=== PATIENT | female | born 1945 | race Caucasian/White ===

== ENCOUNTER 2018-07-12 22:40 | Emergency (ER) | payer MEDICARE, OTHER, SELFPAY ==
[2018-07-12 22:43] VITALS: BP 130/71; PULSE 78; RESP 18; TEMP 36.6; O2SAT 95; BMI 34.7
--- NOTE | 2018-07-12 22:49 | DI.CT.S_ITS ---
PROCEDURE: CT HEAD/BRAIN WO CON INDICATIONS: fell off bar stool,etoh on board TECHNIQUE: Noncontrast 4.5 mm thick angled axial sections acquired from the foramen magnum to the vertex, with coronal and sagittal reformats. For radiation dose reduction, the following was used: automated exposure control, adjustment of mA and/or kV according to patient size. COMPARISON: None. FINDINGS: Image quality: Excellent. CSF spaces: Basal cisterns are patent. No extra-axial fluid collections. The ventricles are symmetric in size and shape. Brain: No intracranial bleeds or masses. There is cerebral volume loss for age, with resultant ventricular and sulcal prominence. There are periventricular and deep white matter chronic small vessel ischemic changes. There is intracranial internal carotid artery atherosclerosis. Skull and face: Calvarium and visualized facial bones appear intact, without suspicious lesions. Superficial soft tissue contusion overlying the right posterolateral calvarium. Sinuses: Visualized sinuses and mastoids are clear. IMPRESSION: CT head without acute intracranial abnormalities. Superficial scalp contusion overlying the right posterolateral calvarium without underlying fracture. Dictated by: Delbert Floyd M.D. on 07/13/2018 at 10:28 Approved by: Delbert Floyd M.D. on 07/13/2018 at 10:30
--- NOTE | 2018-07-12 22:49 | DI.CT.S_ITS ---
PROCEDURE: CT CERVICAL SPINE WO CON INDICATIONS: fell off bar stool,etoh on board TECHNIQUE: Noncontrast 3 mm thick sections acquired from the skull base to the T4 level. Sagittal and coronal reformats were then constructed. For radiation dose reduction, the following was used: automated exposure control, adjustment of mA and/or kV according to patient size. COMPARISON: None. FINDINGS: Image quality: Excellent. Bones: No acute cervical fractures or dislocations. Visualized superior ribs are intact without acute fracture. Straightening of normal cervical or doses likely related to patient positioning and/or muscle spasms. There are mild-moderate spondylitic changes seen throughout the cervical spine with associated facet arthropathy. Findings are most pronounced at C3-4 through C6-7. Soft tissues: Prevertebral soft tissues are normal in thickness. No paravertebral hematomas. No apical pneumothoraces. Prominence of the thyroid gland with suggestion of possible thyroid nodules. IMPRESSION: 1. Cervical spine without acute fracture or dislocation. 2. Mild to moderate multilevel cervical spondylosis. 3. Prominent thyroid gland with suggestion of possible thyroid nodules. Consider outpatient thyroid ultrasound for further evaluation. Dictated by: Delbert Floyd M.D. on 07/13/2018 at 10:30 Approved by: Delbert Floyd M.D. on 07/13/2018 at 11:00
[2018-07-12 23:39] LABS: Add Manual Diff / Slide Review NO; Basophils Absolute Auto 0 /uL (0-100); Basophils Percent Auto 0.5 % (0-2); Eosinophils Absolute Auto 100 /uL (0-450); Hematocrit 43.6 % (36-46); Hemoglobin 14.9 g/dL (12.0-16.0); Lymphocytes Absolute Auto 2700 /uL (1100-4500); Lymphocytes Percent Auto 32.2 % (25-40); Mean Corpuscular HGB Conc 34.2 % (30-36); Mean Corpuscular Hemoglobin 29.6 PG (26-34); Mean Corpuscular Volume 86.5 fL (80-100); Monocytes Absolute Auto 700 /uL (0-900); Monocytes Percent Auto 8.4 % (3-14); Neutrophils Absolute Auto 4900 /uL (1500-7000); Neutrophils Percent Auto 57.9 % (50-75); Platelet Count 195 X10^3/uL (150-400); Red Blood Cell Count 5.04 X10^6/uL (4.0-5.2); Red Cell Distribution Width 14.5 % (11.6-14.8); White Blood Cell Count 8.4 X10^3/uL (4.5-11.0)
[2018-07-12 23:43] LABS: Prothrombin Time 11.2 SECONDS (10.1-12.7)
[2018-07-12 23:48] LABS: Alanine Aminotransferase 26 IU/L (9-52); Albumin 4.3 g/dL (3.5-5.0); Albumin Globulin Ratio 1.4 (1.0-2.8); Alkaline Phosphatase 150 U/L (38-126); Aspartate Aminotransferase 24 IU/L (14-36); Bilirubin Total 0.4 mg/dL (0.2-1.3); Blood Urea Nitrogen 13 mg/dL (7-17); Calcium 8.9 mg/dL (8.4-10.2); Carbon Dioxide 24 mmol/L (22-32); Chloride 102 mmol/L (98-107); Estimated Glomerular Filt Rate > 60.0 mL/min (>60); Glucose 293 mg/dL (80-110); HEMOLYSIS < 15 (0-50); Potassium 3.9 mmol/L (3.4-5.1); Sodium 140 mmol/L (137-145); Total Protein 7.3 g/dL (6.3-8.2)
[2018-07-12 23:52] VITALS: BP 135/58; PULSE 87; RESP 19; O2SAT 95
[2018-07-13 00:31] LABS: Ethanol (ETOH) 225 mg/dL
--- NOTE | 2018-07-13 00:43 | PC.NURSE ---
She pulled out both her iv catheters patent and intact,scant bleeding noted.no active bleeding now.
[2018-07-13 01:17] VITALS: BP 119/50; PULSE 75; RESP 15; O2SAT 94
[2018-07-13 02:13] VITALS: BP 121/61; PULSE 76; RESP 18; O2SAT 96
[2018-07-13 06:39] VITALS: BP 132/64; PULSE 76; RESP 18; TEMP 36.6; O2SAT 98
--- NOTE | 2018-07-13 16:11 | ED.FALL ---
HPI - Fall General Chief Complaint: Fall Stated Complaint: Ground level fall Time Seen by Provider: 07/12/18 22:39 Source: patient and EMS Mode of arrival: EMS Limitations: other (Patient is intoxicated.) History of Present Illness HPI Narrative: Patient is brought by EMS after falling off a bar stool onto a hard surface floor after drinking at the bar. EMS states that bystanders said the patient's head hit the floor, and it sounded like a coconut hitting the ground . Patient was rendered unconscious initially, though by the time the medics arrived, she was alert and appropriate. Patient does not have recollection of the incident. She states she has a headache and has noticed swelling in the area where her head hurts. She denies pain anywhere else. States her headache as a 3/10. No other complaints at this time. Related Data Allergies Allergy/AdvReac Type Severity Reaction Status Date / Time Penicillins Allergy Verified 07/12/18 22:44 Review of Systems Constitutional Denies chills, Denies fever(s), Reports headache(s), Denies lethargy and Denies weakness Eyes Denies change in vision, Denies eye discharge, Denies irritation and Denies loss of vision ENT Ears, Nose, Mouth, and Throat: Denies change in voice, Reports headache(s), Denies neck pain and Denies sore throat Cardiovascular Denies chest pain, Denies irregular heart rhythm, Denies lightheadedness, Denies palpitations, Denies dyspnea, Denies dyspnea on exertion and Denies orthopnea Respiratory Denies cough, Denies dyspnea, Denies dyspnea on exertion and Denies wheezing Gastrointestinal Gastrointestinal: Denies abdominal pain, Denies change in bowel habits, Denies diarrhea, Denies nausea and Denies vomiting Genitourinary Denies hematuria, Denies flank pain, Denies urinary incontinence and Denies urinary urgency Musculoskeletal Denies neck pain Integumentary/Breasts Denies pruritus, Denies erythema, Denies rash and Denies wounds Neurologic Denies confusion, Reports headache(s), Denies loss of vision and Denies weakness Psychiatric Denies anxiety, Denies confusion, Denies depression, Denies homicidal ideation and Denies suicidal ideation Endocrine Denies palpitations Hematologic/Lymphatic Denies easy bruising Allergic/Immunologic Denies wheezing Exam Initial Vital Signs Initial Vital Signs: Vital Signs Temperature 97.9 F 07/12/18 22:43 Pulse Rate 78 07/12/18 22:43 Respiratory Rate 18 07/12/18 22:43 Blood Pressure 130/71 07/12/18 22:43 Pulse Oximetry 95 07/12/18 22:43 Const General: cooperative and well developed Nutritional Appearance: well nourished Orientation: alert, awake, oriented x3 and not confused Other: Patient smells mildly of alcohol. HENMT Head: normocephalic and contusion (Right lateral occipital area. ) Ears: external ears normal Nose: external nose normal and No nasal discharge Face and sinus: sinuses nontender, face symmetric, no sinus tenderness and No dry mucous membranes Mouth: oral mucosae normal and moist mucous membranes Teeth and gingiva: dentition normal Eyes General: appearance normal, both eyes and all related structures Eyelids: eyelids normal Conjunctivae: conjunctivae normal Sclera: sclerae normal Pupils: PERRL EOM: EOM intact bilaterally Neck Neck: normal visual inspection, trachea midline, No lymphadenopathy, No midline deformity and No JVD Lymphatic: No lymphedema Other: No vertebral tenderness or step-off at any level of the spine. Chest Chest: normal inspection of the chest Resp Effort & Inspection: normal respiratory effort, able to speak in complete sentences, no respiratory distress and no use of accessory muscles Auscultation: clear to auscultation bilaterally, no rales, no rhonchi and no wheezes Cardio Rate: regular rate Rhythm: regular rhythm Heart Sounds: no click, no gallops, no murmurs and no rubs Pulses: normal peripheral pulses GI Inspection: non-distended Palpation: soft, no hepatosplenomegaly, No guarding, No pulsatile mass and No tender Back/Spine/Pelvis Back: No CVA tenderness Cervical Spine: cervical ROM normal and No pain with cervical ROM Thoracic/Lumbar Spine: thoracic and lumbar spine normal to inspection Skin General: no rashes or lesions noted, No jaundice and No petechiae Neuro General: alert, oriented x3, gait normal and no focal motor deficits Speech: speech normal Extrem General: full ROM, no clubbing, cyanosis or edema, no pedal edema and no calf tenderness Psych Appearance: well kempt Mental Status: mental status grossly normal Attitude: cooperative Thought Content: normal and suicidality Judgment: judgment good [facility] Medical History Alcohol intoxication (Acute) Surgical History No pertinent past surgical history (Acute) Social History Smoking Status: Smoker, status unknown alcohol intake: current Course Course Narrative: Patient was worked up with CT scans of the head and neck, as well as labs and alcohol level. Initially, I interpreted the head CT as showing an intracranial hemorrhage; however, the radiologist read this study is negative. I did call and speak with the nightshift radiologist, and she pointed out why she did not feel the findings were consistent with hemorrhage, and rather, represented normal structural findings. The patient was observed in the emergency department until more sober, and was able to take a taxi home. She remained stable throughout her stay in the emergency department steadily improved. - Fall Medical Records Attestation: I reviewed the patient's medical records. Lab Data Attestation: I reviewed the patient's lab results. Result diagrams: 07/12/18 23:20 07/12/18 23:20 Lab Results 07/12/18 07/12/18 07/12/18 Range/Units 23:20 23:20 23:20 WBC 8.4 (4.5-11.0) X10^3/uL RBC 5.04 (4.0-5.2) X10^6/uL Hgb 14.9 (12.0-16.0) g/dL Hct 43.6 (36-46) % MCV 86.5 (80-100) fL MCH 29.6 (26-34) PG MCHC 34.2 (30-36) % RDW 14.5 (11.6-14.8) % Plt Count 195 (150-400) X10^3/uL Neut % (Auto) 57.9 (50-75) % Lymph % (Auto) 32.2 (25-40) % [place] % (Auto) 8.4 (3-14) % Eos % (Auto) 1.0 L (2-4) % Baso % (Auto) 0.5 (0-2) % Neut # (Auto) 4900 (0022-7587) /uL Lymph # (Auto) 2700 (0492-9947) /uL [place] # (Auto) 700 (0-900) /uL Eos # (Auto) 100 (0-450) /uL Baso # (Auto) 0 (0-100) /uL PT 11.2 (10.1-12.7) SECONDS INR 1.0 (0.9-1.3) Sodium 140 (137-145) mmol/L Potassium 3.9 (3.4-5.1) mmol/L Chloride 102 (98-107) mmol/L Carbon Dioxide 24 (22-32) mmol/L BUN 13 (7-17) mg/dL Creatinine 0.50 L (0.52-1.04) mg/dL Estimated GFR > 60.0 (>60) mL/min BUN/Creatinine Ratio 26.0 H (6-22) Glucose 293 H (80-110) mg/dL Calcium 8.9 (8.4-10.2) mg/dL Total Bilirubin 0.4 (0.2-1.3) mg/dL AST 24 (14-36) IU/L ALT 26 (9-52) IU/L Alkaline Phosphatase 150 H (38-126) U/L Total Protein 7.3 (6.3-8.2) g/dL Albumin 4.3 (3.5-5.0) g/dL Globulin 3.0 (1.7-4.1) g/dL Albumin/Globulin Ratio 1.4 (1.0-2.8) Ethyl Alcohol 225 mg/dL Imaging Data CT scan - head: Attestation: I personally reviewed and interpreted this imaging study as follows: Radiologist's impression: PROCEDURE: CT HEAD/BRAIN WO CON INDICATIONS: fell off bar stool,etoh on board TECHNIQUE: Noncontrast 4.5 mm thick angled axial sections acquired from the foramen magnum to the vertex, with coronal and sagittal reformats. For radiation dose reduction, the following was used: automated exposure control, adjustment of mA and/or kV according to patient size. COMPARISON: None. FINDINGS: Image quality: Excellent. CSF spaces: Basal cisterns are patent. No extra-axial fluid collections. The ventricles are symmetric in size and shape. Brain: No intracranial bleeds or masses. There is cerebral volume loss for age, with resultant ventricular and sulcal prominence. There are periventricular and deep white matter chronic small vessel ischemic changes. There is intracranial internal carotid artery atherosclerosis. Skull and face: Calvarium and visualized facial bones appear intact, without suspicious lesions. Superficial soft tissue contusion overlying the right posterolateral calvarium. Sinuses: Visualized sinuses and mastoids are clear. IMPRESSION: CT head without acute intracranial abnormalities. Superficial scalp contusion overlying the right posterolateral calvarium without underlying fracture. Dictated by: Delbert Floyd M.D. on 07/13/2018 at 10:28 Approved by: Delbert Floyd M.D. on 07/13/2018 at 10:30 CT C-spine: Radiologist's impression: [address] [address] [address] Scan Report Signed Patient: Delaney Martinez [facility]#: [id number] : 6Acct:[id number] Age/Sex: 72 / FDate of Service: 07/12/18 Loc: ED Accession Number: [id number] Procedure: CT cervical spine wo con Ordering Provider: Mercedes Mariscal MD PROCEDURE: CT CERVICAL SPINE WO CON INDICATIONS: fell off bar stool,etoh on board TECHNIQUE: Noncontrast 3 mm thick sections acquired from the skull base to the T4 level. Sagittal and coronal reformats were then constructed. For radiation dose reduction, the following was used: automated exposure control, adjustment of mA and/or kV according to patient size. COMPARISON: None. FINDINGS: Image quality: Excellent. Bones: No acute cervical fractures or dislocations. Visualized superior ribs are intact without acute fracture. Straightening of normal cervical or doses likely related to patient positioning and/or muscle spasms. There are mild-moderate spondylitic changes seen throughout the cervical spine with associated facet arthropathy. Findings are most pronounced at C3-4 through C6-7. Soft tissues: Prevertebral soft tissues are normal in thickness. No paravertebral hematomas. No apical pneumothoraces. Prominence of the thyroid gland with suggestion of possible thyroid nodules. IMPRESSION: 1. Cervical spine without acute fracture or dislocation. 2. Mild to moderate multilevel cervical spondylosis. 3. Prominent thyroid gland with suggestion of possible thyroid nodules. Consider outpatient thyroid ultrasound for further evaluation. Dictated by: Delbert Floyd M.D. on 07/13/2018 at 10:30 Approved by: Delbert Floyd M.D. on 07/13/2018 at 11:00 Discharge Plan Departure Patient Disposition: Home Clinical Impression: Alcohol intoxication, Closed head injury Discharge Date/Time: 07/13/18 07:04 Interventions: ED Discharge Assessment Last Done: 07/13/18 06:39 Instructions: DI for Alcohol Abuse, DI for Closed Head Injury Activity Restrictions/Additional Instructions: Your brain CT looks good--no bleeding in the brain. You have hit your head quite hard when you fell off the stool, and you have most likely sustained a concussion. This may leave the feeling dizzy, nauseated, and with headaches for the next week or so. Please avoid alcohol during this time. Referrals: [facility] [Provider Group]
--- NOTE | 2018-07-13 16:18 | ED_ITS ---
HPI - Fall General Chief Complaint: Fall Stated Complaint: Ground level fall Time Seen by Provider: 07/12/18 22:39 Source: patient and EMS Mode of arrival: EMS Limitations: other (Patient is intoxicated.) History of Present Illness HPI Narrative: Patient is brought by EMS after falling off a bar stool onto a hard surface floor after drinking at the bar. EMS states that bystanders said the patient's head hit the floor, and it sounded like a coconut hitting the ground . Patient was rendered unconscious initially, though by the time the medics arrived, she was alert and appropriate. Patient does not have recollection of the incident. She states she has a headache and has noticed swelling in the area where her head hurts. She denies pain anywhere else. States her headache as a 3/10. No other complaints at this time. Related Data Allergies Allergy/AdvReac Type Severity Reaction Status Date / Time Penicillins Allergy Verified 07/12/18 22:44 Review of Systems Constitutional Denies chills, Denies fever(s), Reports headache(s), Denies lethargy and Denies weakness Eyes Denies change in vision, Denies eye discharge, Denies irritation and Denies loss of vision ENT Ears, Nose, Mouth, and Throat: Denies change in voice, Reports headache(s), Denies neck pain and Denies sore throat Cardiovascular Denies chest pain, Denies irregular heart rhythm, Denies lightheadedness, Denies palpitations, Denies dyspnea, Denies dyspnea on exertion and Denies orthopnea Respiratory Denies cough, Denies dyspnea, Denies dyspnea on exertion and Denies wheezing Gastrointestinal Gastrointestinal: Denies abdominal pain, Denies change in bowel habits, Denies diarrhea, Denies nausea and Denies vomiting Genitourinary Denies hematuria, Denies flank pain, Denies urinary incontinence and Denies urinary urgency Musculoskeletal Denies neck pain Integumentary/Breasts Denies pruritus, Denies erythema, Denies rash and Denies wounds Neurologic Denies confusion, Reports headache(s), Denies loss of vision and Denies weakness Psychiatric Denies anxiety, Denies confusion, Denies depression, Denies homicidal ideation and Denies suicidal ideation Endocrine Denies palpitations Hematologic/Lymphatic Denies easy bruising Allergic/Immunologic Denies wheezing Exam Initial Vital Signs Initial Vital Signs: Vital Signs Temperature 97.9 F 07/12/18 22:43 Pulse Rate 78 07/12/18 22:43 Respiratory Rate 18 07/12/18 22:43 Blood Pressure 130/71 07/12/18 22:43 Pulse Oximetry 95 07/12/18 22:43 Const General: cooperative and well developed Nutritional Appearance: well nourished Orientation: alert, awake, oriented x3 and not confused Other: Patient smells mildly of alcohol. HENMT Head: normocephalic and contusion (Right lateral occipital area. ) Ears: external ears normal Nose: external nose normal and No nasal discharge Face and sinus: sinuses nontender, face symmetric, no sinus tenderness and No dry mucous membranes Mouth: oral mucosae normal and moist mucous membranes Teeth and gingiva: dentition normal Eyes General: appearance normal, both eyes and all related structures Eyelids: eyelids normal Conjunctivae: conjunctivae normal Sclera: sclerae normal Pupils: PERRL EOM: EOM intact bilaterally Neck Neck: normal visual inspection, trachea midline, No lymphadenopathy, No midline deformity and No JVD Lymphatic: No lymphedema Other: No vertebral tenderness or step-off at any level of the spine. Chest Chest: normal inspection of the chest Resp Effort & Inspection: normal respiratory effort, able to speak in complete sentences, no respiratory distress and no use of accessory muscles Auscultation: clear to auscultation bilaterally, no rales, no rhonchi and no wheezes Cardio Rate: regular rate Rhythm: regular rhythm Heart Sounds: no click, no gallops, no murmurs and no rubs Pulses: normal peripheral pulses GI Inspection: non-distended Palpation: soft, no hepatosplenomegaly, No guarding, No pulsatile mass and No tender Back/Spine/Pelvis Back: No CVA tenderness Cervical Spine: cervical ROM normal and No pain with cervical ROM Thoracic/Lumbar Spine: thoracic and lumbar spine normal to inspection Skin General: no rashes or lesions noted, No jaundice and No petechiae Neuro General: alert, oriented x3, gait normal and no focal motor deficits Speech: speech normal Extrem General: full ROM, no clubbing, cyanosis or edema, no pedal edema and no calf tenderness Psych Appearance: well kempt Mental Status: mental status grossly normal Attitude: cooperative Thought Content: normal and suicidality Judgment: judgment good [facility] Medical History Alcohol intoxication (Acute) Surgical History No pertinent past surgical history (Acute) Social History Smoking Status: Smoker, status unknown alcohol intake: current Course Course Narrative: Patient was worked up with CT scans of the head and neck, as well as labs and alcohol level. Initially, I interpreted the head CT as showing an intracranial hemorrhage; however, the radiologist read this study is negative. I did call and speak with the nightshift radiologist, and she pointed out why she did not feel the findings were consistent with hemorrhage, and rather, represented normal structural findings. The patient was observed in the emergency department until more sober, and was able to take a taxi home. She remained stable throughout her stay in the emergency department steadily improved. - Fall Medical Records Attestation: I reviewed the patient's medical records. Lab Data Attestation: I reviewed the patient's lab results. Result diagrams: 07/12/18 23:20 07/12/18 23:20 Lab Results 07/12/18 07/12/18 07/12/18 Range/Units 23:20 23:20 23:20 WBC 8.4 (4.5-11.0) X10^3/uL RBC 5.04 (4.0-5.2) X10^6/uL Hgb 14.9 (12.0-16.0) g/dL Hct 43.6 (36-46) % MCV 86.5 (80-100) fL MCH 29.6 (26-34) PG MCHC 34.2 (30-36) % RDW 14.5 (11.6-14.8) % Plt Count 195 (150-400) X10^3/uL Neut % (Auto) 57.9 (50-75) % Lymph % (Auto) 32.2 (25-40) % [place] % (Auto) 8.4 (3-14) % Eos % (Auto) 1.0 L (2-4) % Baso % (Auto) 0.5 (0-2) % Neut # (Auto) 4900 (1971-0045) /uL Lymph # (Auto) 2700 (2958-1334) /uL [place] # (Auto) 700 (0-900) /uL Eos # (Auto) 100 (0-450) /uL Baso # (Auto) 0 (0-100) /uL PT 11.2 (10.1-12.7) SECONDS INR 1.0 (0.9-1.3) Sodium 140 (137-145) mmol/L Potassium 3.9 (3.4-5.1) mmol/L Chloride 102 (98-107) mmol/L Carbon Dioxide 24 (22-32) mmol/L BUN 13 (7-17) mg/dL Creatinine 0.50 L (0.52-1.04) mg/dL Estimated GFR > 60.0 (>60) mL/min BUN/Creatinine Ratio 26.0 H (6-22) Glucose 293 H (80-110) mg/dL Calcium 8.9 (8.4-10.2) mg/dL Total Bilirubin 0.4 (0.2-1.3) mg/dL AST 24 (14-36) IU/L ALT 26 (9-52) IU/L Alkaline Phosphatase 150 H (38-126) U/L Total Protein 7.3 (6.3-8.2) g/dL Albumin 4.3 (3.5-5.0) g/dL Globulin 3.0 (1.7-4.1) g/dL Albumin/Globulin Ratio 1.4 (1.0-2.8) Ethyl Alcohol 225 mg/dL Imaging Data CT scan - head: Attestation: I personally reviewed and interpreted this imaging study as follows: Radiologist's impression: PROCEDURE: CT HEAD/BRAIN WO CON INDICATIONS: fell off bar stool,etoh on board TECHNIQUE: Noncontrast 4.5 mm thick angled axial sections acquired from the foramen magnum to the vertex, with coronal and sagittal reformats. For radiation dose reduction, the following was used: automated exposure control, adjustment of mA and/or kV according to patient size. COMPARISON: None. FINDINGS: Image quality: Excellent. CSF spaces: Basal cisterns are patent. No extra-axial fluid collections. The ventricles are symmetric in size and shape. Brain: No intracranial bleeds or masses. There is cerebral volume loss for age , with resultant ventricular and sulcal prominence. There are periventricular and deep white matter chronic small vessel ischemic changes. There is intracranial internal carotid artery atherosclerosis. Skull and face: Calvarium and visualized facial bones appear intact, without suspicious lesions. Superficial soft tissue contusion overlying the right posterolateral calvarium. Sinuses: Visualized sinuses and mastoids are clear. IMPRESSION: CT head without acute intracranial abnormalities. Superficial scalp contusion overlying the right posterolateral calvarium without underlying fracture. Dictated by: Delbert Floyd M.D. on 07/13/2018 at 10:28 Approved by: Delbert Floyd M.D. on 07/13/2018 at 10:30 CT C-spine: Radiologist's impression: [address] [address] [address] Scan Report Signed Patient: Delaney Martinez [facility]#: [id number] : 6Acct:[id number] Age/Sex: 72 / FDate of Service: 07/12/18 Loc: ED Accession Number: [id number] Procedure: CT cervical spine wo con Ordering Provider: Mercedes Mariscal MD PROCEDURE: CT CERVICAL SPINE WO CON INDICATIONS: fell off bar stool,etoh on board TECHNIQUE: Noncontrast 3 mm thick sections acquired from the skull base to the T4 level. Sagittal and coronal reformats were then constructed. For radiation dose reduction, the following was used: automated exposure control, adjustment of mA and/or kV according to patient size. COMPARISON: None. FINDINGS: Image quality: Excellent. Bones: No acute cervical fractures or dislocations. Visualized superior ribs are intact without acute fracture. Straightening of normal cervical or doses likely related to patient positioning and/or muscle spasms. There are mild-moderate spondylitic changes seen throughout the cervical spine with associated facet arthropathy. Findings are most pronounced at C3-4 through C6-7. Soft tissues: Prevertebral soft tissues are normal in thickness. No paravertebral hematomas. No apical pneumothoraces. Prominence of the thyroid gland with suggestion of possible thyroid nodules. IMPRESSION: 1. Cervical spine without acute fracture or dislocation. 2. Mild to moderate multilevel cervical spondylosis. 3. Prominent thyroid gland with suggestion of possible thyroid nodules. Consider outpatient thyroid ultrasound for further evaluation. Dictated by: Delbert Floyd M.D. on 07/13/2018 at 10:30 Approved by: Delbert Floyd M.D. on 07/13/2018 at 11:00 Discharge Plan Departure Patient Disposition: Home Clinical Impression: Alcohol intoxication, Closed head injury Discharge Date/Time: 07/13/18 07:04 Interventions: ED Discharge Assessment Last Done: 07/13/18 06:39 Instructions: DI for Alcohol Abuse, DI for Closed Head Injury Activity Restrictions/Additional Instructions: Your brain CT looks good--no bleeding in the brain. You have hit your head quite hard when you fell off the stool, and you have most likely sustained a concussion. This may leave the feeling dizzy, nauseated, and with headaches for the next week or so. Please avoid alcohol during this time. Referrals: [facility] [Provider Group]
== END 2018-07-13 07:04 | disposition home or self-care (01) ==
PROVIDERS: Emergency Provider Emergency Medicine
DX: F10.929 Alcohol use, unspecified with intoxication, unspecified (principal); S09.90XA Unspecified injury of head, initial encounter; W08.XXXA Fall from other furniture, initial encounter
CPT/HCPCS: 36591; 70450; 72125; 80053; 80320; 85025; 85610; 99283; 99284; 99291

== ENCOUNTER 2018-10-11 20:23 | Emergency (ER) | payer MEDICARE, OTHER, SELFPAY ==
--- NOTE | 2018-10-11 | DI.RAD.S_ITS ---
PROCEDURE: XR SHOULDER RT MIN 2V INDICATIONS: FRACTURE TECHNIQUE: 2 views of the shoulder were acquired. COMPARISON: None. FINDINGS: Bones: Displaced and impacted fracture of the proximal right humerus. Soft tissues: No suspicious soft tissue calcifications. IMPRESSION: Right humerus fracture. Dictated by: Lulu Colin MD, PhD on 10/12/2018 at 9:36 Approved by: Lulu Colin MD, PhD on 10/12/2018 at 9:36
[2018-10-11 20:29] VITALS: BP 156/58; PULSE 83; RESP 15; TEMP 36.8; O2SAT 97; BMI 35.6
[2018-10-11] MEDS: TET,DIPH,PERTUSS(ACELL),VAC/PF 0.5 ML SYRINGE IM (20:38)
--- NOTE | 2018-10-11 20:38 | DI.CT.S_ITS ---
PROCEDURE: CT THORACIC SPINE WO CON INDICATIONS: glf, midline pain. + etoh TECHNIQUE: Noncontrast 3 mm thick sections acquired through the region of interest in the thoracic spine. Sagittal and coronal reformats were then constructed. For radiation dose reduction, the following was used: automated exposure control. COMPARISON: None. FINDINGS: Image quality: Excellent. Bones: There is normal overall bony alignment. No acute vertebral body compression fractures. No suspicious sclerotic or lytic bony lesions. Central spinal canal is of normal overall caliber. Bridging osteophytes. No trauma found. Soft tissues: No paravertebral masses or hematomas. Visualized posteromedial lungs appear clear. IMPRESSION: Bridging osteophytes along the thoracic spine, no compression fracture or traumatic subluxation is seen. Dictated by: Rashard Oleary M.D. on 10/11/2018 at 21:27 Approved by: Rashard Oleary M.D. on 10/11/2018 at 21:28
--- NOTE | 2018-10-11 20:38 | DI.CT.S_ITS ---
PROCEDURE: CT CERVICAL SPINE WO CON INDICATIONS: glf + etoh TECHNIQUE: Noncontrast 3 mm thick sections acquired from the skull base to the T4 level. Sagittal and coronal reformats were then constructed. For radiation dose reduction, the following was used: automated exposure control, adjustment of mA and/or kV according to patient size. COMPARISON: None. FINDINGS: Image quality: Excellent. Bones: No fractures or dislocations. Visualized superior ribs are intact. Soft tissues: Prevertebral soft tissues are normal in thickness. No paravertebral hematomas. No apical pneumothoraces. IMPRESSION: No trauma found. Dictated by: Rashard Oleary M.D. on 10/11/2018 at 21:38 Approved by: Rashard Oleary M.D. on 10/11/2018 at 21:39
--- NOTE | 2018-10-11 20:38 | DI.CT.S_ITS ---
PROCEDURE: CT LUMBAR SPINE WO CON INDICATIONS: glf, midlien pain, +etoh TECHNIQUE: Noncontrast 3 mm thick sections acquired from the T12 level to the sacrum. Sagittal and coronal reformats were constructed. For radiation dose reduction, the following was used: automated exposure control. COMPARISON: [facility], , L-SPINE 2-3 VIEWS, 02/17/2016, 15:31. FINDINGS: Image quality: Excellent. Bones: There is normal bony alignment. No acute vertebral body compression fractures. No suspicious lytic or blastic bony lesions. Central spinal caliber is of normal overall caliber. No pars defects. With reference to the prior lumbosacral spine plain films from 02/17/16 the superior mild endplate impaction fracture at L3 is again seen. A moderate wedge compression fracture was previously seen at T12, and no traumatic subluxation is found. Soft tissues: No retroperitoneal masses or hematomas. Visualized aorta is normal in caliber. 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 No acute compression fracture or traumatic subluxation is found. Dictated by: Rashard Oleary M.D. on 10/11/2018 at 21:39 Approved by: Rashard Oleary M.D. on 10/11/2018 at 21:41
--- NOTE | 2018-10-11 20:38 | DI.RAD.S_ITS ---
PROCEDURE: XR FOREARM RT 2V INDICATIONS: glf TECHNIQUE: 2 views of the forearm were acquired. COMPARISON: None. FINDINGS: Bones: No fractures or dislocations. No suspicious bony lesions. Soft tissues: No suspicious soft tissue calcifications or masses. IMPRESSION: The forearm long bones appear free of trauma, the elbow and wrist are not adequately visualized to accurately assess for presence or absence of trauma to those areas. Dedicated wrist and elbow films may be warranted. Dictated by: Rashard Oleary M.D. on 10/11/2018 at 21:36 Approved by: Rashard Oleary M.D. on 10/11/2018 at 21:37
--- NOTE | 2018-10-11 20:38 | DI.RAD.S_ITS ---
PROCEDURE: XR HUMERUS RT 2V INDICATIONS: glf, right arm pain TECHNIQUE: 2 views of the humerus were acquired. COMPARISON: None. FINDINGS: Bones: No dislocations. No suspicious bony lesions. The there is a proximal humeral head/neck junction fracture partially visualized. The humerus below that appears free of trauma. Soft tissues: No suspicious soft tissue calcifications. IMPRESSION: Humeral head/neck junction fracture on the right partially visualized. Dedicated shoulder plain films appear warranted. Dictated by: Rashard Oleary M.D. on 10/11/2018 at 21:37 Approved by: Rashard Oleary M.D. on 10/11/2018 at 21:38
--- NOTE | 2018-10-11 20:42 | DI.CT.S_ITS ---
PROCEDURE: CT HEAD/BRAIN WO CON INDICATIONS: glf, + etoh TECHNIQUE: Noncontrast 4.5 mm thick angled axial sections acquired from the foramen magnum to the vertex, with coronal and sagittal reformats. For radiation dose reduction, the following was used: automated exposure control, adjustment of mA and/or kV according to patient size. COMPARISON: None. FINDINGS: Image quality: Excellent. CSF spaces: Basal cisterns are patent. No extra-axial fluid collections. The ventricles are symmetric in size and shape. Brain: No intracranial bleeds or masses. There is cerebral volume loss for age, with resultant ventricular and sulcal prominence. There are periventricular and deep white matter chronic small vessel ischemic changes. There is intracranial internal carotid artery atherosclerosis. Skull and face: Calvarium and visualized facial bones appear intact, without suspicious lesions. Sinuses: Visualized sinuses and mastoids are clear. IMPRESSION: No trauma found. Dictated by: Rashard Oleary M.D. on 10/11/2018 at 21:38 Approved by: Rashard Oleary M.D. on 10/11/2018 at 21:38
--- NOTE | 2018-10-11 21:09 | ED_ITS ---
HPI - Fall <NGUYEN Duvall - Last Filed: 10/11/18 22:48> General Chief Complaint: Fall Stated Complaint: GLF, back pain Time Seen by Provider: 10/11/18 20:33 Source: patient and EMS Mode of arrival: EMS Limitations: no limitations History of Present Illness HPI Narrative: The patient is a 72-year-old female who states she tripped and fell while walking down the street. She states she hit her head, but it does hurt. She does complain of right shoulder pain as well as back midline pain. upon inquiry about neck pain, the patient states she is not sure. She does admit that she has had at least 6 beers prior to her fall. She does complain of an left arm. She does not know when her last tetanus was. She states she is not exactly sure what hurts at this point time. She fell just prior to arrival and arrived by EMS. She was not wearing a C-collar or on a backboard. Related Data Allergies Allergy/AdvReac Type Severity Reaction Status Date / Time Penicillins Allergy Verified 10/11/18 20:29 [facility] Systems [facility] Last Filed: 10/11/18 22:48> Review of Systems GENERAL: Denies chills, fatigue, malaise, fever, sweats. HEENT: Denies sinus pain, ear pain, sore throat, difficulty swallowing, d izziness. RESPIRATORY: Denies dyspnea, cough, wheezing, hemoptysis, sputum. CARDIOVASCULAR: Denies chest pain, palpitations, orthopnea, edema, GASTROINTESTINAL: Denies nausea, vomiting, abdominal pain, diarrhea, constipation, melena. : Denies dysuria, frequency, incontinence, hematuria, urinary retention. MUSCULOSKELETAL: See HPI SKIN: See HPI NEUROLOGIC: Denies weakness, headache, numbness, change in speech, confusion, seizures, incoordination. PSYCHIATRIC: No concerning psychosocial issues. 12 point review of systems is negative except for those stated above Exam <NGUYEN Duvall - Last Filed: 10/11/18 22:48> Narrative Exam Narrative: GENERAL: This is a well-nourished, well-developed patient, in mild distress. HEAD: Atraumatic. Normocephalic. No temporal or scalp tenderness. EYES: Pupils equal round and reactive. Extraocular motions intact. No scleral icterus. No injection or drainage. ENT: Nose without bleeding, purulent drainage or septal hematoma. Throat without erythema, tonsillar hypertrophy or exudate. Uvula midline. Airway patent. NECK: Trachea midline. No JVD or lymphadenopathy. Supple, nontender, no meningeal signs. CARDIOVASCULAR: Regular rate and rhythm without murmurs, gallops, or rubs. RESPIRATORY: Clear to auscultation. Breath sounds equal bilaterally. No wheezes, rales, or rhonchi. GASTROINTESTINAL: Abdomen soft, non-tender, nondistended. No hepato- splenomegaly, or palpable masses. No guarding. EXTREMITIES: Pain to palpation right shoulder right humerus. Positive radial pulse on the right side. No pain to palpation right elbow or wrist. BACK: Nontender without deformity or crepitance. No flank tenderness. NEURO: AOx3. SKIN: 5 cm abrasion noted left forearm. Initial Vital Signs Initial Vital Signs: Vital Signs Temperature 98.3 F 10/11/18 20:29 Pulse Rate 83 10/11/18 20:29 Respiratory Rate 15 10/11/18 20:29 Blood Pressure 156/58 H 10/11/18 20:29 Pulse Oximetry 97 10/11/18 20:29 <Christ Cassidy DO - Last Filed: 10/11/18 23:39> Initial Vital Signs Initial Vital Signs: Vital Signs Temperature 98.3 F 10/11/18 20:29 Pulse Rate 83 10/11/18 20:29 Respiratory Rate 15 10/11/18 20:29 Blood Pressure 156/58 H 10/11/18 20:29 Pulse Oximetry 97 10/11/18 20:29 [facility] <ISSA Duvall - Last Filed: 10/11/18 22:48> Medical History (Updated 10/11/18 @ 22:39 by ISSA Duvall) Alcohol intoxication (Inactive) Surgical History (Updated 07/13/18 @ 16:13 by Mercedes Mariscal MD) No pertinent past surgical history (Acute) Social History (Updated 07/13/18 @ 16:13 by Mercedes Mariscal MD) Smoking Status: Smoker, status unknown alcohol intake: current Social History (Updated 07/13/18 @ 16:13 by Mercedes Mariscal MD) Smoking Status: Smoker, status unknown alcohol intake: current Procedures <ISSA Duvall - Last Filed: 10/11/18 22:48> Orthopedic Splinting/Casting Injury #1: Side: right Upper Extremity Injury Location: shoulder Upper Extremity Immobilizer: sling/shoulder immobilizer (with coaptation splint) Post splinting neuro exam: intact Post splinting vascular exam: intact Placed by: Nursing Additional Comments: splint placement to be checked by Dr Cassidy <Christ Cassidy DO - Last Filed: 10/11/18 23:39> Orthopedic Splinting/Casting Injury #1: Side: right Upper Extremity Injury Location: upper arm Upper Extremity Immobilizer: sugar tong splint Post splinting neuro exam: intact and no change Post splinting vascular exam: intact Placed by: Provider Course <ISSA Duvall - Last Filed: 10/11/18 22:48> Orders Ordered: ED Orders 10/11/18 20:38 CT cervical spine wo con Stat CT lumbar spine wo con Stat CT thoracic spine wo con Stat XR forearm LT 2V Stat XR humerus RT 2V Stat 10/11/18 20:42 CT head/brain wo con Stat Discontinued Medications Hydrocodone Bitart/Acetaminophen ([place] 5/325) 1 tab PO NOW ONE Stop: 10/11/18 22:35 Last Admin: 10/11/18 22:58 Dose: 1 tab Hydrocodone Bitart/Acetaminophen (Vicodin Prepack) 1 bottle MISC SEEINSTR ONE Stop: 10/11/18 22:35 Last Admin: 10/11/18 22:58 Dose: 1 bottle Diphtheria/Tetanus/Acell Pertussis (Adacel) 0.5 ml IM .ONCE ONE Stop: 10/11/18 20:35 Last Admin: 10/11/18 20:38 Dose: 0.5 ml Ketorolac Tromethamine (Toradol) 30 mg IM NOW ONE Stop: 10/11/18 21:49 Last Admin: 10/11/18 21:56 Dose: 30 mg Ondansetron HCl (Zofran Odt Prepack) 1 bottle MISC SEEINSTR ONE Stop: 10/11/18 22:35 Last Admin: 10/11/18 22:58 Dose: 1 bottle Ondansetron HCl (Zofran Odt) 4 mg SL NOW ONE Stop: 10/11/18 22:35 Vital Signs - 8 hr 10/11/18 20:29 10/11/18 22:01 10/11/18 23:25 Temperature 98.3 F Pulse Rate 83 90 112 H Respiratory Rate 15 18 Blood Pressure 156/58 H Blood Pressure [Left Arm] 122/65 176/88 H Pulse Oximetry 97 95 100 <Christ Cassidy DO - Last Filed: 10/11/18 23:39> Orders Ordered: ED Orders 10/11/18 20:38 CT cervical spine wo con Stat CT lumbar spine wo con Stat CT thoracic spine wo con Stat XR forearm LT 2V Stat XR humerus RT 2V Stat 10/11/18 20:42 CT head/brain wo con Stat Discontinued Medications Hydrocodone Bitart/Acetaminophen ([place] 5/325) 1 tab PO NOW ONE Stop: 10/11/18 22:35 Last Admin: 10/11/18 22:58 Dose: 1 tab Hydrocodone Bitart/Acetaminophen (Vicodin Prepack) 1 bottle MISC SEEINSTR ONE Stop: 10/11/18 22:35 Last Admin: 10/11/18 22:58 Dose: 1 bottle Diphtheria/Tetanus/Acell Pertussis (Adacel) 0.5 ml IM .ONCE ONE Stop: 10/11/18 20:35 Last Admin: 10/11/18 20:38 Dose: 0.5 ml Ketorolac Tromethamine (Toradol) 30 mg IM NOW ONE Stop: 10/11/18 21:49 Last Admin: 10/11/18 21:56 Dose: 30 mg Ondansetron HCl (Zofran Odt Prepack) 1 bottle MISC SEEINSTR ONE Stop: 10/11/18 22:35 Last Admin: 10/11/18 22:58 Dose: 1 bottle Ondansetron HCl (Zofran Odt) 4 mg SL NOW ONE Stop: 10/11/18 22:35 Vital Signs - 8 hr 10/11/18 20:29 10/11/18 22:01 10/11/18 23:25 Temperature 98.3 F Pulse Rate 83 90 112 H Respiratory Rate 15 18 Blood Pressure 156/58 H Blood Pressure [Left Arm] 122/65 176/88 H Pulse Oximetry 97 95 100 MDM - Fall <ISSA Duvall - Last Filed: 10/11/18 22:48> Imaging Data right forearm xray : Radiologist's impression: Delaney Martinez 72 F [address] [address] XRay Report Signed Patient: Delaney Martinez [facility]#: [id number] : 6Acct:[id number] Age/Sex: 72 / FDate of Service: 10/11/18 Loc: ED Accession Number: [id number] Procedure: XR forearm LT 2V Ordering Provider: Soo Pringle PROCEDURE: XR FOREARM RT 2V INDICATIONS: glf TECHNIQUE: 2 views of the forearm were acquired. COMPARISON: None. FINDINGS: Bones: No fractures or dislocations. No suspicious bony lesions. Soft tissues: No suspicious soft tissue calcifications or masses. IMPRESSION: The forearm long bones appear free of trauma, the elbow and wrist are not adequately visualized to accurately assess for presence or absence of trauma to those areas. Dedicated wrist and elbow films may be warranted. Dictated by: Rashard Oleary M.D. on 10/11/2018 at 21:36 Approved by: Rashard Oleary M.D. on 10/11/2018 at 21:[address]: Radiologist's impression: [address] [address] [address] Scan Report Signed Patient: Delaney Martinez [facility]#: [id number] : 6Acct:[id number] Age/Sex: 72 / FDate of Service: 10/11/18 Loc: ED Accession Number: [id number] Procedure: CT thoracic spine wo con Ordering Provider: Soo Pringle PROCEDURE: CT THORACIC SPINE WO CON INDICATIONS: glf, midline pain. + etoh TECHNIQUE: Noncontrast 3 mm thick sections acquired through the region of interest in the thoracic spine. Sagittal and coronal reformats were then constructed. For radiation dose reduction, the following was used: automated exposure control. COMPARISON: None. FINDINGS: Image quality: Excellent. Bones: There is normal overall bony alignment. No acute vertebral body compression fractures. No suspicious sclerotic or lytic bony lesions. Central spinal canal is of normal overall caliber. Bridging osteophytes. No trauma found. Soft tissues: No paravertebral masses or hematomas. Visualized posteromedial lungs appear clear. IMPRESSION: Bridging osteophytes along the thoracic spine, no compression fracture or traumatic subluxation is seen. Dictated by: Rashard Oleary M.D. on 10/11/2018 at 21:27 Approved by: Rashard Oleary M.D. on 10/11/2018 at 21:[address]: Radiologist's impression: [facility] DATE TYPE STATUS AUTHOR Myranda 10/11/18 20:42 AnirudhRashard 10/11/18 20:38 Rashard Oleary 10/11/18 20:38 Rashard Oleary 10/11/18 20:38 Rashard Oleary 10/11/18 20:38 10/11/18 20:38 Rashard Oleary 10/11/18 20:38 Rashard Oleary 07/12/18 22:49 Delbert Floyd 07/12/18 22:49 MarielDelaney Jean 72, F1945 PRE ER, ED.LOC - Main ED: R05 157.48cm 88.451kg BMI: 35.7kg/m? Fall Search Chart No Data to Display ONSET Today 20:29 Delaney Martinez 72 [place] 1945 [place] [address] CT Scan Report Signed Patient: Delaney Martinez [facility]#: [id number] : 1945cct:[id number] Age/Sex: 72 / FDate of Service: 10/11/18 Loc: ED Accession Number: [id number] Procedure: CT lumbar spine wo con Ordering Provider: Soo Pringle- PROCEDURE: CT LUMBAR SPINE WO CON INDICATIONS: glf, midlien pain, +etoh TECHNIQUE: Noncontrast 3 mm thick sections acquired from the T12 level to the sacrum. Sagittal and coronal reformats were constructed. For radiation dose reduction, the following was used: automated exposure control[facility], 15:31. FINDINGS: Image quality: Excellent. Bones: There is normal bony alignment. No acute vertebral body compression fractures. No suspicious lytic or blastic bony lesions. Central spinal caliber is of normal overall caliber. No pars defects. With reference to the prior lumbosacral spine plain films from 02/17/16 the superior mild endplate impaction fracture at L3 is again seen. A moderate wedge compression fracture was previously seen at T12, and no traumatic subluxation is found. Soft tissues: No retroperitoneal masses or hematomas. Visualized aorta is normal in caliber. 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 No acute compression fracture or traumatic subluxation is found. Dictated by: Rashard Oleary M.D. on 10/11/2018 at 21:39 Approved by: Rashard Oleary M.D. on 10/11/2018 at 21:41 R humerus xray: Radiologist's impression: [address] [address] XRay Report Signed Patient: Delaney Martinez [facility]#: [id number] : 6Acct:[id number] Age/Sex: 72 / FDate of Service: 10/11/18 Loc: ED Accession Number: [id number] Procedure: XR humerus RT 2V Ordering Provider: Soo Pringle PROCEDURE: XR HUMERUS RT 2V INDICATIONS: glf, right arm pain TECHNIQUE: 2 views of the humerus were acquired. COMPARISON: None. FINDINGS: Bones: No dislocations. No suspicious bony lesions. The there is a proximal humeral head/neck junction fracture partially visualized. The humerus below that appears free of trauma. Soft tissues: No suspicious soft tissue calcifications. IMPRESSION: Humeral head/neck junction fracture on the right partially visu alized. Dedicated shoulder plain films appear warranted. Dictated by: Rashard Oleary M.D. on 10/11/2018 at 21:37 Approved by: Rashard Oleary M.D. on 10/11/2018 at 21:38 CT scan - head: Radiologist's impression: [address] [address] [address] Scan Report Signed Patient: Delaney Martinez [facility]#: [id number] : 6Acct:[id number] Age/Sex: 72 / FDate of Service: 10/11/18 Loc: ED Accession Number: [id number] Procedure: CT head/brain wo con Ordering Provider: Soo Pringle PROCEDURE: CT HEAD/BRAIN WO CON INDICATIONS: glf, + etoh TECHNIQUE: Noncontrast 4.5 mm thick angled axial sections acquired from the foramen magnum to the vertex, with coronal and sagittal reformats. For radiation dose reduction, the following was used: automated exposure control, adjustment of mA and/or kV according to patient size. COMPARISON: None. FINDINGS: Image quality: Excellent. CSF spaces: Basal cisterns are patent. No extra-axial fluid collections. The ventricles are symmetric in size and shape. Brain: No intracranial bleeds or masses. There is cerebral volume loss for age, with resultant ventricular and sulcal prominence. There are periventricular and deep white matter chronic small vessel ischemic changes. There is intracranial internal carotid artery atherosclerosis. Skull and face: Calvarium and visualized facial bones appear intact, without suspicious lesions. Sinuses: Visualized sinuses and mastoids are clear. IMPRESSION: No trauma found. Dictated by: Rashard Oleary M.D. on 10/11/2018 at 21:38 Approved by: Rashard Oleary M.D. on 10/11/2018 at 21:38 ct c spine: Radiologist's impression: [place] [address] CT Scan Report Signed Patient: Delaney Martinez [facility]#: [id number] : 6Acct:[id number] Age/Sex: 72 / FDate of Service: 10/11/18 Loc: ED Accession Number: [id number] Procedure: CT cervical spine wo con [facility]ED[facility]: CT CERVICAL SPINE WO CON INDICATIONS: glf + etoh TECHNIQUE: Noncontrast 3 mm thick sections acquired from the skull base to the T4 level. Sagittal and coronal reformats were then constructed. For radiation dose reduction, the following was used: automated exposure control, adjustment of mA and/or kV according to patient size. COMPARISON: None. FINDINGS: Image quality: Excellent. Bones: No fractures or dislocations. Visualized superior ribs are intact. Soft tissues: Prevertebral soft tissues are normal in thickness. No paravertebral hematomas. No apical pneumothoraces. IMPRESSION: No trauma found. Dictated by: Rashard Oleary M.D. on 10/11/2018 at 21:38 Approved by: Rashard Oleary M.D. on 10/11/2018 at 21:39 shoulder xray right : Radiologist's impression: Night read states acute comminuted fracture of the surgical neck of the right humerus. Slight anterior displacement of the shaft relative to the humeral head MDM Narrative Medical decision making narrative: The patient is a 72-year-old female who presents with a chief complaint of a ground level fall and subsequent back and shoulder pain. given her intoxicated status, I cannot clear her spine by nexus criteria, so I obtained images of her head and spine. Fortunately her head CT and spinal CTs were normal other than degenerative changes and osteophytes. There was concern for a shoulder fracture. She was treated for pain with Toradol in the emergency department. I was somewhat limited with pain control given her intoxication as well as her age. I did give her take-home packs that she does have an acute humerus fracture. Discussed at length that she has a follow-up with primary care as well as Orthopedics. She was neurovascularly intact throughout her stay in the emergency department. She was given contact information for [facility]. Discharge Plan Departure Patient Disposition: Home Clinical Impression: Fall from ground level, Abrasion Closed left humeral fracture Qualifiers: Encounter type: initial encounter Humerus Location: surgical neck Fracture morphology: 2-part Fracture alignment: nondisplaced Qualified Code(s): S42.225A - 2-part nondisplaced fracture of surgical neck of left humerus, initial encounter for closed fracture Instructions: How to Use a Sling, How To Perform RICE (Rest, Ice, Compress, Elevate), How to Prevent Falls, How to Take Care of Your Splint, DI for Abrasion, Humeral Shaft Fracture Activity Restrictions/Additional Instructions: Unfortunately you broke your arm in the fall. Follow-up with [facility]. Please do rest ice compression elevation. I have given you pain medication as well as nausea medication. Please follow up with primary care provider. Please come back to the emergency department for any acute concerns. Referrals: [facility] [Provider Group] <Christ Cassidy DO - Last Filed: 10/11/18 23:39> [facility] ED Attending Vance Attestation: I was available for consultation during this patient's emergency department encounter
[2018-10-11] MEDS: KETOROLAC 60 MG/2 ML VIAL 30 MG IM (21:56)
[2018-10-11 22:01] VITALS: BP 122/65; PULSE 90; O2SAT 95
[2018-10-11] MEDS: ONDANSETRON 4 MG ODT PREPACK 1 BOTTLE MISC (22:58)
[2018-10-11] MEDS: HYDROCODONE/ACET 5/325 PREPACK 1 BOTTLE MISC (22:58)
[2018-10-11] MEDS: HYDROCODONE/ACET 5/325 TABLET 1 TAB PO (22:58)
[2018-10-11 23:25] VITALS: BP 176/88; PULSE 112; RESP 18; O2SAT 100
--- NOTE | 2018-10-12 00:32 | PC.NURSE ---
Call has been made to her son for ride home for her.She is able to be discharged but will be allowed to remain in our ED until a ride home for her can be found.
[2018-10-12 05:36] VITALS: BP 169/79; PULSE 92; RESP 18; O2SAT 97
== END 2018-10-12 05:54 | disposition home or self-care (01) ==
PROVIDERS: Emergency Provider Nurse Practitioner Family
DX: S42.225A 2-part nondisplaced fracture of surgical neck of left humerus, initial encounter for closed fracture (principal); S09.90XA Unspecified injury of head, initial encounter; M25.511 Pain in right shoulder; W19.XXXA Unspecified fall, initial encounter; Z23 Encounter for immunization
CPT/HCPCS: 29105; 70450; 72125; 72128; 72131; 73030; 73060; 73090; 90471; 96372; 99283; 99284; 90715; J1885

== ENCOUNTER → 2020-03-04 16:03 | Outpatient (CLI) | payer OTHER, MEDICARE, SELFPAY ==
--- NOTE | 2020-03-04 | DI.MRI.S_ITS ---
PROCEDURE: MR HUMERUS RT WO/W CON INDICATIONS: Benign Lipomatous neoplasm of other sites TECHNIQUE: Noncontrast coronal T1 spin echo and STIR, sagittal T1 spin echo with fat saturation and STIR, axial T1 spin echo and T2 fast spin echo with fat saturation. After the administration of contrast, axial/sagittal/coronal T1 spin echo with fat saturation through the right arm . COMPARISON: [facility], CR, XR SHOULDER RT MIN 2V, 10/11/2018, 21:45. [facility], CR, XR HUMERUS RT 2V, 10/11/2018, 21:08. [facility] [place], CR, XR SHOULDER 2+ VIEWS RIGHT, 09/09/2019, 14:50. FINDINGS: Image quality: There are motion artifacts in several sequences. Bones: Old humeral neck fracture with deformity. Degenerative joint disease in right shoulder and elbow. The overlying cortex appears intact. No abnormal intraosseous enhancement. Soft tissues: There is an elliptical shaped, well defined and sharply marginated mass within the biceps muscle measuring 3.4 cm AP x 3.5 cm transverse x 7.0 cm longitudinal. The mass demonstrates identical signal intensity to subcutaneous fat on all sequences. On contrast-enhanced images, there is no visible enhancement. The mass is compatible with an intramuscular lipoma. IMPRESSION: 1. 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 2. Old right humeral neck fracture with deformity. 3. 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 Dictated by: Magali Cheema M.D. on 03/05/2020 at 7:21 Approved by: Magali Cheema M.D. on 03/05/2020 at 8:04
== END ==
PROVIDERS: Family Provider Family Medicine; PCP Family Medicine; Referring Provider Orthopaedic Surgery; Visit Provider Orthopaedic Surgery
DX: D17.79 Benign lipomatous neoplasm of other sites (principal); M19.011 Primary osteoarthritis, right shoulder; M19.021 Primary osteoarthritis, right elbow
CPT/HCPCS: 73218; A9579